=== PATIENT | male | born 1950 | race Caucasian/White ===

== ENCOUNTER → 2019-10-05 | Day surgery (SDC) | payer MEDICARE, OTHER ==
[~2019-10-05] MED LIST: ACARBOSE100 MG PO; ALDACTONE25 MG PO; ATORVASTATIN CA40 MG PO; BUMETANIDE1 MG PO; DIGOXIN125 MCG PO; ELIQUIS5 M1 PO; FENTANYL CITRATE/PF 100MCG/2 ML INJ ONE; FUROSEMIDE40 MG PO; GLIMEPIRIDE2 MG PO; GLYBURIDE-METF1 EAC1 PO; GLYBURIDE5 MG PO; JANUVIA100 MG PO; LASIX20 MG PO; LEVAQUIN500 MG PO; LIPOFEN150 MG PO; METFORMIN HCL500 MG PO; METOPROLOL SUCC25 MG PO; MIDAZOLAM HCL 2 MG/2 ML VIAL ONE; NATEGLINIDE60 MG PO; NOVOLOG100 UNIT/1 SC; OR PHACO EYE KIT ONE; POTASSIUM CHLO10 ME1 PO; PREOP PHACO EYE KIT ONE; RAMIPRIL10 MG PO; SPIRONOLACTONE25 MG PO; TEMAZEPAM15 MG PO; TRESIBA100 UNIT/1 SC; TRULICITY1.5 MG/0.5 SC
[2019-10-05 13:10] VITALS: BP 110/73
== END | disposition home or self-care (01) ==
LOC: OR 09:16
PROVIDERS: ATTEND Ophthalmology
DX: H25.12 Age-related nuclear cataract, left eye (principal); S61.411A Laceration without foreign body of right hand, initial encounter; E11.22 Type 2 diabetes mellitus with diabetic chronic kidney disease; I13.0 Hypertensive heart and chronic kidney disease with heart failure and stage 1 through stage 4 chronic kidney disease, or unspecified chronic kidney disease; N18.9 Chronic kidney disease, unspecified; I50.9 Heart failure, unspecified; X58.XXXA Exposure to other specified factors, initial encounter; Z79.84 Long term (current) use of oral hypoglycemic drugs; Z79.02 Long term (current) use of antithrombotics/antiplatelets; Z79.4 Long term (current) use of insulin; Z95.0 Presence of cardiac pacemaker
CPT/HCPCS: 36415; 66984; 82948; J2250; J3010; V2632

== ENCOUNTER → 2019-10-19 | Day surgery (SDC) | payer MEDICARE, OTHER ==
[2019-10-19 12:18] VITALS: BP 109/71
== END | disposition home or self-care (01) ==
LOC: OR 08:45
PROVIDERS: ATTEND Ophthalmology
DX: H25.11 Age-related nuclear cataract, right eye (principal); E11.22 Type 2 diabetes mellitus with diabetic chronic kidney disease; I13.0 Hypertensive heart and chronic kidney disease with heart failure and stage 1 through stage 4 chronic kidney disease, or unspecified chronic kidney disease; N18.3 Chronic kidney disease, stage 3 (moderate); I50.9 Heart failure, unspecified; E78.5 Hyperlipidemia, unspecified; Z79.4 Long term (current) use of insulin; Z95.0 Presence of cardiac pacemaker
CPT/HCPCS: 36415; 66984; 82948; J2250; J3010

== ENCOUNTER 2020-09-07 09:33 | Emergency (ER) | payer MEDICARE, OTHER ==
[~2020-09-07] VITALS: Ht 185.4 cm; Wt 113.4 kg
[~2020-09-07 09:33] MED LIST changes: -FENTANYL CITRATE/PF 100MCG/2 ML INJ ONE; -MIDAZOLAM HCL 2 MG/2 ML VIAL ONE; -OR PHACO EYE KIT ONE; -PREOP PHACO EYE KIT ONE
[2020-09-07 10:19] LABS: BASOPHILS # (AUTO) 0.1 (0.0-0.1); BASOPHILS % 0.8 % (0.0-1.0); EOSINOPHILS # (AUTO) 0.1 (0.0-0.4); EOSINOPHILS % 0.6 % (0.0-6.0); HEMATOCRIT 47.5 % (38.2-49.6); HEMOGLOBIN 15.6 g/dL (14.0-18.0); LYMPHOCYTES # (AUTO) 1.4 (1.0-3.2); LYMPHOCYTES % 8.7 % (18.0-39.1); MEAN CORPUSCULAR HEMOGLOBIN 29.8 pg (28-32); MEAN CORPUSCULAR HGB CONC 32.8 g/dL (31-35); MEAN CORPUSCULAR VOLUME 90.6 fL (81-99); MONOCYTES # (AUTO) 1.5 (0.2-0.8); MONOCYTES % 8.9 % (4.4-11.3); NEUTROPHILS # (AUTO) 12.8 (2.1-6.9); NEUTROPHILS % 78.1 % (38.7-80.0); PLATELET COUNT 248 x10e3/uL (140-360); RED BLOOD COUNT 5.24 x10e6/uL (4.3-5.7); RED CELL DISTRIBUTION WIDTH 15.5 % (11.7-14.4)
[2020-09-07] MEDS ORDERED: SODIUM BICARBONATE 8.4% SYRING 50 ML ONE (10:49)
[2020-09-07 10:50] LABS: ALBUMIN 4.4 g/dL (3.5-5.0); ALBUMIN/GLOBULIN RATIO 1.2 (0.8-2.0); ANION GAP 17.7 mmol/L (8-16); CREATININE, SERUM 2.11 mg/dL (0.72-1.25); POTASSIUM 4.7 mmol/L (3.5-5.1)
[2020-09-07] MEDS ORDERED: TYLENOL # 31 EA PO (11:56)
[2020-09-07] MEDS ORDERED: ZOFRAN4 MG PO (11:56)
[2020-09-07] MEDS ORDERED: SODIUM CHLORIDE 0.9% 100 ML ONE (12:01)
[2020-09-07] MEDS ORDERED: IOPAMIDOL 370 MG/ML 200 ML INFUS..BTL INJ ONE (12:02)
[2020-09-07] MEDS ORDERED: AUGMENTIN 875-1 EACH PO (14:26)
== END 2020-09-07 14:20 | disposition home or self-care (01) ==
LOC: ER 09:36
DX: S00.83XA Contusion of other part of head, initial encounter (principal); S61.011A Laceration without foreign body of right thumb without damage to nail, initial encounter; R07.9 Chest pain, unspecified; S50.02XA Contusion of left elbow, initial encounter; M79.642 Pain in left hand; M79.641 Pain in right hand; V53.5XXA Driver of pick-up truck or van injured in collision with car, pick-up truck or van in traffic accident, initial encounter; Y92.488 Other paved roadways as the place of occurrence of the external cause
CPT/HCPCS: 12002; 36415; 70450; 71045; 71275; 72125; 73080; 73130; 80053; 82550; 82553; 83880; 84484; 85025; 93005; 99284; J7050; Q9967